=== PATIENT | female | born 1990 | race African-American/Black ===

== ENCOUNTER 2017-04-30 23:19 | Emergency (ER) | payer OTHER ==
[2017-04-30 23:41] VITALS: BP 127/81; BMI 27.3
--- NOTE | 2017-04-30 23:56 | PDOC ---
History of Present Illness - General Chief Complaint: Puncture Wound Stated Complaint: INJURY Time Seen by Provider: 04/30/17 23:36 History Source: Patient - History of Present Illness Initial Comments: 04/30/17 23:56 27-year-old female [employer] employee stepped on broken glass on the floor reports foreign body kind of feeling to left foot. Reports that the broken glass went through her sneakers. Patient denies increased pain, redness, fever, chills. Patient denies any blood bloodstain on the broken glass. Past History - Past Medical History Allergies/Adverse Reactions: Allergies Allergy/AdvReac Type Severity Reaction Status Date / Time No Known Allergies Allergy Verified 04/30/17 23:32 Home Medications: Ambulatory Orders Cephalexin Monohydrate [Keflex -] 250 mg PO Q8H #21 capsule 05/01/17 COPD: No - Suicide/Smoking/Psychosocial Hx Smoking History: Never smoked Have you smoked in the past 12 months: No Information on smoking cessation initiated: No Hx Alcohol Use: No Drug/Substance Use Hx: No Review of Systems - Review of Systems Able to Perform ROS?: Yes Is the patient limited Burundian proficient: No Integumentary: Yes: Other (foreign body to left foot) *Physical Exam - Vital Signs Last Vital Signs Temp Pulse Resp BP Pulse Ox 98.2 F 96 H 16 127/81 100 04/30/17 23:29 04/30/17 23:29 04/30/17 23:29 04/30/17 23:29 04/30/17 23:29 - Physical Exam General Appearance: Yes: Appropriately Dressed Extremity: positive: Normal Capillary Refill, Other (left plantar foot small puncture wound noted, ) Integumentary: positive: Normal Color, Dry, Warm Neurologic: positive: Fully Oriented, Alert, Normal Mood/Affect ED Treatment Course - LABORATORY CBC & Chemistry Diagram: 05/01/17 00:01 05/01/17 00:01 Progress Note - Progress Note Progress Note: A: unknown foreign body ? employee exposure P: post exposure labs. patient low risk for PEP. patient advised to follow up employee [employer] office. *DC/Admit/Observation/Transfer Diagnosis at time of Disposition: Puncture wound - Discharge Dispostion Disposition: HOME Condition at time of disposition: Stable - Prescriptions Prescriptions: Cephalexin Monohydrate [Keflex -] 250 mg PO Q8H #21 capsule - Referrals Referrals: Sahil García MD [Primary Care Provider] - - Patient Instructions Printed Discharge Instructions: DI for Puncture Wound Additional Instructions: KEEP SITE CLEAN AND DRY. FOLLOW UP IN EMPLOYEE HEALTH SOON POSSIBLE. - Post Discharge Activity Forms/Work/School Notes: Back to Work
[2017-05-01] MEDS ORDERED: diphenhydrAMINE HCL 25 MG CAPSULE (FP) PO ONE ×2 (00:05→01:18)
[2017-05-01 00:16] LABS: BASO % 0.6 % (0-2.0); EOS % 1.8 % (0-4.5); HEMATOCRIT 37.7 % (32.4-45.2); HEMOGLOBIN 12.5 GM/dL (10.7-15.3); LYMPH % 34.9 % (8-40); MCH 26.8 pg (25.7-33.7); MCHC 33.3 g/dl (32.0-36.0); MEAN CELL VOLUME 80.7 fl (80-96); MEAN PLT VOLUME 8.9 fl (7.5-11.1); MONO % 15.7 % (3.8-10.2); PLATELET COUNT 301 K/MM3 (134-434); RBC 4.67 M/mm3 (3.60-5.2); RDW 14.6 % (11.6-15.6); WHITE BLOOD COUNT 5.1 K/mm3 (4.0-10.0)
[2017-05-01 00:43] LABS: ALBUMIN 3.7 g/dl (3.4-5.0); ANION GAP 10 (8-16); BILIRUBIN,TOTAL 0.2 mg/dL (0.2-1.0); BLOOD UREA NITROGEN 14 mg/dL (7-18); CALCIUM 9.1 mg/dL (8.5-10.1); CHLORIDE 105 mmol/L (98-107); CHOLESTEROL 111 mg/dL (50-200); CO2 26 mmol/L (21-32); GAMMA GLUTAMYL TRANSPEPTIDASE 19 U/L (5-85); GLUCOSE,RANDOM 114 mg/dL (74-106); LDH 166 U/L (84-246); PHOSPHOROUS 3.5 mg/dL (2.5-4.9); POTASSIUM 3.7 mmol/L (3.5-5.1); SGOT/AST 13 U/L (15-37); SGPT/ALT 25 U/L (12-78); SODIUM 141 mmol/L (136-145); TOT PROT 6.8 g/dl (6.4-8.2); TRIGLYCERIDES 77 mg/dL (35-160); URIC ACID 3.5 mg/dL (2.6-7.2)
[2017-05-01 00:44] LABS: ALK PHOS 84 U/L (45-117)
[2017-05-01 02:25] VITALS: PULSE 89; TEMP 99
[2017-05-02 06:07] LABS: HBsAG SCREEN Negative (Negative); HEPATITIS B CORE ANTIBODY Negative (Negative)
== END 2017-05-01 02:25 | disposition home or self-care (01) ==
LOC: JER 23:19
DX: S91.342A Puncture wound with foreign body, left foot, initial encounter (principal); W25.XXXA Contact with sharp glass, initial encounter; Y93.89 Activity, other specified; Y92.238 Other place in hospital as the place of occurrence of the external cause; Y99.0 Civilian activity done for income or pay
CPT/HCPCS: 36415; 73630-TC-LT; 80053; 82465; 82977; 83615; 84100; 84478; 84550; 85025; 86704; 87340; 87389; 99282-25

== ENCOUNTER 2018-07-09 23:14 | Emergency (ER) | payer OTHER | END 2018-07-10 00:15 | disposition home or self-care (01) | LOC: FER 07-10 00:15 | DX: M54.5 Low back pain (principal); W01.0XXA Fall on same level from slipping, tripping and stumbling without subsequent striking against object, initial encounter; Y93.89 Activity, other specified; Y92.410 Unspecified street and highway as the place of occurrence of the external cause ==

== ENCOUNTER 2018-07-13 22:10 | Emergency (ER) | payer OTHER ==
[2018-07-13 22:28] VITALS: BP 156/98; PULSE 107; TEMP 98.7; BMI 28.5
--- NOTE | 2018-07-13 23:25 | PDOC ---
Documentation entered by Linn Sewell SCRIBE, acting as scribe for Slime Agustin MD. Slime Agustin MD: This documentation has been prepared by the Melodie draper Adrianna, SCRIBE, under my direction and personally reviewed by me in its entirety. I confirm that the documentation accurately reflects all work, treatment, procedures, and medical decision making performed by me. History of Present Illness - General Chief Complaint: Back Pain Stated Complaint: BACK PAIN Time Seen by Provider: 07/13/18 22:42 History Source: Patient Exam Limitations: No Limitations - History of Present Illness Initial Comments: Ms. Hdez is a 28 yo F who returns to the ER for evaluation of back pain More than 1 week ago, pt slipped on water in the street Since falling, she has noted diffuse back pain No bowel or bladder incontinence Pt has been ambulatory with no difficulty She was seen in the ER for her complaints Pt was discharged on pain medications which she has taken but states the pain has persisted She has not followed up with her PMD because of a delay in obtaining her insurance Pt reports pain is sharp, achy, rated 7/10, located through out her back ( paraspinal and midline) no radiation of pain Pt improved with Ice baths and warm compresses Pain worsens with movement She now feels that her back pain is significant if she is seated upright or leaning forward She come to the ER from school this evening PMH: right shoulder injury PSH: tonsillectomy Meds: denies ALL: NKDA Social: denies alcohol, drugs, cigarette use Works at [employer] 07/13/18 22:50 07/13/18 23:09 07/13/18 23:12 07/13/18 23:22 Past History - Past Medical History Allergies/Adverse Reactions: Allergies Allergy/AdvReac Type Severity Reaction Status Date / Time No Known Allergies Allergy Verified 07/09/18 23:16 Home Medications: Ambulatory Orders Lidocaine 5% Patch [Lidoderm Patch -] 1 patch TP DAILY PRN #30 patch 07/10/18 Methocarbamol [Robaxin -] 500 mg PO TID PRN #30 tablet 07/10/18 Naproxen [Naprosyn -] 500 mg PO BID PRN #14 tablet 07/10/18 Acetaminophen W/ Codeine #3 [Tylenol # 3 -] 1 tab PO Q6H PRN #10 tablet MDD 3 Lidocaine 5% Patch [Lidoderm Patch -] 1 patch TP DAILY PRN #30 patch 07/14/18 Methocarbamol [Robaxin -] 500 mg PO TID PRN #30 tablet 07/14/18 Naproxen [Naprosyn -] 500 mg PO BID PRN #14 tablet 07/14/18 Asthma: No Cancer: No COPD: No HTN: No - Suicide/Smoking/Psychosocial Hx Smoking History: Never smoked Have you smoked in the past 12 months: No Hx Alcohol Use: No Drug/Substance Use Hx: No Review of Systems - Review of Systems Able to Perform ROS?: Yes Comments:: GENERAL/CONSTITUTIONAL: No: fever, chills, weakness HEAD, EYES, EARS, NOSE AND THROAT: No: change in vision, ear pain, discharge, sore throat, throat swelling. CARDIOVASCULAR: No: chest pain, lightheadedness, palpitations, syncope RESPIRATORY: No: cough, shortness of breath, wheezing GASTROINTESTINAL: No: nausea, vomiting, diarrhea, abdominal pain GENITOURINARY: No: dysuria, hematuria, frequency, urgency, flank pain. MUSCULOSKELETAL: Yes: back pain No: neck pain SKIN: No: lesions, pallor, rash or easy bruising. NEUROLOGIC: No: headache, vertigo, paresthesias, weakness 07/13/18 22:51 07/13/18 23:22 Is the patient limited Kuwaiti proficient: No *Physical Exam - Vital Signs Last Vital Signs Temp Pulse Resp BP Pulse Ox 98.7 F 107 H 20 156/98 98 07/13/18 22:26 07/13/18 22:26 07/13/18 22:26 07/13/18 22:26 07/13/18 22:26 - Physical Exam Comments: GENERAL: The patient is in no acute distress. HEAD: Normal EYES: PERRLA, EOMI, sclera anicteric, conjunctiva clear. ENT: Ears normal, nares patent, oropharynx clear without exudates. Moist mucous membranes. NECK: Normal range of motion, supple without midline tenderness to palpation LUNGS: Breath sounds equal, clear to auscultation bilaterally. HEART:Regular rate and rhythm, normal S1 and S2 without murmur, rub or gallop. ABDOMEN: Soft, nontender, normoactive bowel sounds. EXTREMITIES: Normal range of motion NEUROLOGICAL: Cranial nerves II through XII grossly intact. Normal speech. No focal neurological deficits. Nml leg crossing Nml hip flexion and extension Nml knee flexion and extension Nml ankle dorsi and plantar flexion Nml EHL Sensation in tact MUSCULOSKELETAL: Pt paraspinal region, midline region all tender to palpation - lumbar spine worse than thoracic spine SKIN: Warm, Dry, normal turgor, no rashes or lesions noted. 07/13/18 22:51 07/13/18 23:23 ED Treatment Course - RADIOLOGY Radiology Studies Ordered: Category Date Time Status RIBS BILATERAL [RAD] Stat Radiology 07/13/18 23:03 Ordered SPINE-CERVICAL (2-3VIEWS) [RAD] Stat Radiology 07/13/18 22:52 Ordered SPINE-LUMBAR ONLY [RAD] Stat Radiology 07/13/18 23:03 Ordered SPINE-THORACIC [RAD] Stat Radiology 07/13/18 23:03 Ordered Radiograph Interpretation: EXAM: SPINE-THORACIC HISTORY: Pain status post fall IMPRESSION: Normal thoracic spine. REPORTED BY: Niranjan Roy MD 07/14/2018 01:25 EST EXAM: SPINE-LUMBAR ONLY HISTORY: Pain status post fall IMPRESSION: Normal lumbar spine. REPORTED BY: Niranjan Roy MD 07/14/2018 01:25 EST EXAM: SPINE-CERVICAL (2-3VIEWS) HISTORY: Pain status post fall IMPRESSION: Normal cervical spine. REPORTED BY: Niranjan Roy MD 07/14/2018 01:26 EST 07/14/18 01:33 Medical Decision Making - Medical Decision Making 07/13/18 23:24 28 yo F s/p fall with back pain Pt s/p second ER visit for the same, has not followed up with PMD or Neuro Pt has no weakness on examination Pt reports paresthesias of the lower extremities Will do: [facility] Xrays Pt refusing pain medications as she states "you are going to charge me for them " Re Assess 07/14/18 01:39 Xrays performed and are negative Pt given pain medication after further discussion Pt appears less uncomfortable Pt given copies of Xray reports CXR nml Pt asked to follow up with Ortho or PMD Pt told that she may need an MRI Clinical impression: back pain s/p fall probably disc herniation s/p fall *DC/Admit/Observation/Transfer Diagnosis at time of Disposition: Back pain Qualifiers: Back pain location: back pain in unspecified location Chronicity: unspecified Back pain laterality: bilateral Qualified Code(s): M54.9 - Dorsalgia, unspecified - Discharge Dispostion Disposition: HOME Condition at time of disposition: Stable Decision to Admit order: No - Referrals Referrals: Sahil García MD [Primary Care Provider] - Elan Palomo MD [Staff Physician] - Jordon Dawkins MD, FAANS [Staff Physician] - - Patient Instructions Printed Discharge Instructions: Back Pain (Alternative Therapy), Low Back Pain , DI for Low Back Pain, DI for Thoracic Back Pain Additional Instructions: Ms Hdez, Thank you for coming in to the ER today Your x rays were negative for fracture This does not mean there are no injuries that can not be seen by xray Therefore I strongly recommend that you follow up with either Dr Palomo (orthopedics ) OR Dr Dawkins (Neurosurgery) You will need additional imaging and further management which is best done by the specialist You may need physical therapy or steroid injections etc but the specialist is the best person to make that determination I have prescribed more pain medications for you Please take them as prescribed If you notice weakness, numbness, inability to hold your urine or stool, that is a reason to come back to the ER - Post Discharge Activity Forms/Work/School Notes: Back to Work
[2018-07-14] MEDS ORDERED: LIDOCAINE 5% TOPICAL PATCH TP ONE (00:26)
[2018-07-14] MEDS ORDERED: METHOCARBAMOL 500 MG TABLET PO ONE (00:26)
[2018-07-14] MEDS ORDERED: ACETAMINOPHEN WITH CODEINE 300MG/30MG TABLET PO ONE (00:26)
[2018-07-14] MEDS ORDERED: IBUPROFEN 600 MG TABLET (FP) PO ONE ×2 (00:26→00:31)
[2018-07-14] MEDS ORDERED: ACETAMINOPHEN WITH CODEINE 300MG/30MG TABLET ONE (00:31)
[2018-07-14] MEDS ORDERED: LIDOCAINE 5% TOPICAL PATCH ONE (00:31)
[2018-07-14] MEDS ORDERED: METHOCARBAMOL 500 MG TABLET ONE (00:31)
[2018-07-14] MEDS ORDERED: LIDOCAINE PATCH REMOVAL MC SCH (22:00)
== END 2018-07-14 02:01 | disposition home or self-care (01) ==
LOC: JER 22:10
DX: M54.89 Other dorsalgia (principal); W01.0XXA Fall on same level from slipping, tripping and stumbling without subsequent striking against object, initial encounter; Y93.89 Activity, other specified; Y92.414 Local residential or business street as the place of occurrence of the external cause; Y99.8 Other external cause status
CPT/HCPCS: 71046-TC-FY; 72040-TC; 72070-TC-FY; 72100-TC-FY; 84703; 99281-25